=== PATIENT | female | born 1930 | race Caucasian/White ===

== ENCOUNTER → 2017-06-01 | Outpatient (CLI) | payer MEDICARE, OTHER ==
--- NOTE | 2017-06-01 10:14 | CT ---
EXAMINATION TYPE: CT lumbar spine wo con DATE OF EXAM: 06/01/2017 COMPARISON: NONE HISTORY: 86-year-old female with pain, lumbar spondylosis TECHNIQUE: Contiguous axial scanning of the lumbar spine without IV contrast. Coronal and sagittal re constructions performed. CT DLP: 964.3 mGycm Automated exposure control for dose reduction was used. FINDINGS: There is a degenerated levoconvex scoliosis of the lumbar spine. Hypertrophic facet arthropathy throughout with moderate to advanced disc/endplate degenerative change characterized by disc interspace narrowing, bulging discs, and vacuum phenomenon at some levels. There is degenerative thinning of the intraspinous ligaments with abutment of the spinous processes c ompatible with Baastrup's disease. There is grade 1 retrolisthesis at T12-L1, L1-L2, and L2-L3. Grade 1 anterolisthesis at L3-L4 and L4- L5. At T12-L1, facet arthropathy with grade 1 retrolisthesis. There is slight attenuation of the thecal s ac without significant spinal canal stenosis. Mild bilateral neuroforaminal stenosis. At L1-L2, facet arthropathy and grade 1 retrolisthesis. Bulging disc is present with mild bilateral n euroforaminal stenosis. No significant spinal canal stenosis seen. At L2-L3, trace retrolisthesis with hypertrophic facet arthropathy. Discussed by complex is present. There is impression of the ventral thecal sac without significant spinal canal stenosis. There is mod erate right and mild left neuroforaminal stenosis. At L3-L4, there is hypertrophic facet arthropathy with grade 1 anterolisthesis. Bulging disc is prese nt with mild attenuation of the thecal sac. Changes result in [id number] right neuroforaminal s tenosis. At L4-L5, hypertrophic facet arthropathy with grade 1 anterolisthesis. Changes result in [id number] rate right neuroforaminal stenosis and mild on the left. No significant spinal canal stenosis. At L5-S1, facet arthropathy is present bilaterally discussed to be complex on both sides which abuts the extraforaminal L5 nerve roots, bilaterally. Moderate right and mild left neuroforaminal stenosis. Diffuse colonic diverticulosis. IMPRESSION: 1. HYPERTROPHIC FACET ARTHROPATHY AND MODERATE TO ADVANCED MULTILEVEL DEGENERATIVE DISC DISEASE. THER E IS A DEGENERATED LEVOCONVEX SCOLIOSIS. 2. GRADE 1 RETROLISTHESES AT T12-L1, L1-L2, AND L2-L3. GRADE 1 ANTEROLISTHESIS AT L3-L4 AND L4-L5. 3. ONLY MILD NARROWING OF THE SPINAL CANAL AT L3-L4. MINIMAL IMPRESSION ON THE THECAL SAC AT OTHER LE VELS. NO CANAL COMPROMISE. 4. VERY MILD AND MODERATE NEURAL FORAMINAL STENOSES OUTLINED ABOVE, MODERATE ON THE RIGHT AT L2-L3 AND L5-S1. 5. AT L5-S1, LATERAL DISC OSTEOPHYTIC COMPLEX APPEARS TO ABUT THE BILATERAL EXTRAFORAMINAL L5 NERVE R OOTS. 6. BAASTRUP'S DISEASE. 7. DIFFUSE COLONIC DIVERTICULOSIS.
== END | disposition home or self-care (01) ==
LOC: RADCTMAIN 09:16
PROVIDERS: ATTEND Physical Medicine & Rehabilitation
DX: M48.061 Spinal stenosis, lumbar region without neurogenic claudication (principal); M99.74 Connective tissue and disc stenosis of intervertebral foramina of sacral region; M51.36 Other intervertebral disc degeneration, lumbar region; M43.15 Spondylolisthesis, thoracolumbar region; M46.86 Other specified inflammatory spondylopathies, lumbar region; M41.86 Other forms of scoliosis, lumbar region; M48.26 Kissing spine, lumbar region
CPT/HCPCS: 72131

== ENCOUNTER 2017-07-14 11:21 | Inpatient (IN) | payer MEDICARE, OTHER ==
--- NOTE | 2017-07-14 12:10 | ED ---
Neuro HPI - General Chief Complaint: Neuro Symptoms/Deficit Stated Complaint: POSS CVA, FALL LAST NIGHT, SLURRED SPEECH Time Seen by Provider: 07/14/17 11:50 Source: patient, family, RN notes reviewed Mode of arrival: wheelchair Limitations: no limitations - History of Present Illness Is the patient presenting with stroke symptoms?: No Initial Comments: this is a 86-year-old female who is brought in by family members for evaluation for gagging her right foot sleeping a lot. Apparently sleeping started over a day ago. She was difficult to arouse all day yesterday she fell around 9:30 PM and after that she had some difficulty with raising her right foot she also has some jerking of her other extremities slightly slurred speech additionally she had some shortness of breath she complains of a dry throat. Also family noticed some facial asymmetry. She has of a recent history of a peripheral edema which got better after she started elevating her feet. No fevers chills no blurry vision no headaches or other symptoms at this time. - Related Data Home Medications: Home Medications Medication Instructions Recorded Confirmed Levothyroxine Sodium [Synthroid] 50 mcg PO DAILY 05/04/15 07/14/17 Metoprolol Succinate [Toprol XL] 37.5 mg PO DAILY 05/04/15 07/14/17 Quinapril/Hydrochlorothiazide 0.5 tab PO DAILY 05/04/15 07/14/17 [Quinapril-Hctz 20-12.5 mg Tab] Acetaminophen Tab [Tylenol Tab] 325 - 650 mg PO Q4H PRN 07/14/17 07/14/17 Celecoxib [CeleBREX] 200 mg PO BID 07/14/17 07/14/17 Escitalopram Oxalate [Lexapro] 10 mg PO HS 07/14/17 07/14/17 Furosemide [Lasix] 40 mg PO BID 07/14/17 07/14/17 Gabapentin [Neurontin] 300 mg PO HS 07/14/17 07/14/17 HYDROcodone/APAP 7.5-325MG [[place] 1 tab PO Q4-6H PRN 07/14/17 07/14/17 7.5-325] Metolazone [Zaroxolyn] 2.5 mg PO MOWEFR 07/14/17 07/14/17 Morphine Sulfate/Naltrexone 1 cap PO QAM 07/14/17 07/14/17 [Embeda ER 20-0.8 mg Capsule] Nizatidine [Axid] 150 mg PO DAILY 07/14/17 07/14/17 Simvastatin 40 mg PO HS 07/14/17 07/14/17 Spironolactone [Aldactone] 25 mg PO QAM 07/14/17 07/14/17 Allergies/Adverse Reactions: Allergies Allergy/AdvReac Type Severity Reaction Status Date / Time No Known Allergies Allergy Verified 07/14/17 12:29 Review of Systems ROS Statement: Those systems with pertinent positive or pertinent negative responses have been documented in the HPI. ROS Other: All systems not noted in ROS Statement are negative. General Exam - General Exam Comments Initial Comments: this is a well-developed well-nourished awake alert oriented 3 female she does demonstrate a Mehrdad Coma Scale of 15 Limitations: no limitations General appearance: alert, in no apparent distress Head exam: Present: atraumatic, normocephalic, normal inspection, other (some evidence of left facial asymmetry compared to the right) Eye exam: Present: normal appearance, PERRL, EOMI. Absent: scleral icterus, conjunctival injection, periorbital swelling ENT exam: Present: normal exam, mucous membranes moist Neck exam: Present: normal inspection. Absent: tenderness, meningismus, lymphadenopathy Respiratory exam: Present: normal lung sounds bilaterally. Absent: respiratory distress, wheezes, rales, rhonchi, stridor Cardiovascular Exam: Present: normal rhythm, bradycardia, normal heart sounds. Absent: systolic murmur, diastolic murmur, rubs, gallop, clicks GI/Abdominal exam: Present: soft, normal bowel sounds. Absent: distended, tenderness, guarding, rebound, rigid Extremities exam: Present: normal inspection, full ROM, normal capillary refill. Absent: tenderness, pedal edema, joint swelling, calf tenderness Back exam: Present: normal inspection Neurological exam: Present: alert, oriented X3, CN II-XII intact Psychiatric exam: Present: normal affect, normal mood Skin exam: Present: warm, dry, intact, normal color. Absent: rash Stroke MDM - Lab Data Result diagrams: 07/14/17 12:00 07/14/17 12:00 Lab Results 07/14/17 07/14/17 07/14/17 Range/Units 12:00 12:00 12:00 WBC 13.9 H (3.8-10.6) k/uL RBC 3.14 L (3.80-5.40) m/uL Hgb 9.9 L (11.4-16.0) gm/dL Hct 30.6 L (34.0-46.0) % MCV 97.6 (80.0-100.0) fL MCH 31.4 (25.0-35.0) pg MCHC 32.2 (31.0-37.0) g/dL RDW 16.2 H (11.5-15.5) % Plt Count 241 (150-450) k/uL Neutrophils % 69 % Lymphocytes % 20 % Monocytes % 7 % Eosinophils % 1 % Basophils % 0 % Neutrophils # 9.6 H (1.3-7.7) k/uL Lymphocytes # 2.8 (1.0-4.8) k/uL Monocytes # 1.0 (0-1.0) k/uL Eosinophils # 0.2 (0-0.7) k/uL Basophils # 0.1 (0-0.2) k/uL Anisocytosis Slight Macrocytosis Slight PT (9.0-12.0) sec INR (<1.2) APTT (22.0-30.0) sec Sodium 131 L (137-145) mmol/L Potassium 5.3 H (3.5-5.1) mmol/L Chloride 94 L (98-107) mmol/L Carbon Dioxide 27 (22-30) mmol/L Anion Gap 10 mmol/L BUN 115 H* (7-17) mg/dL Creatinine 2.92 H (0.52-1.04) mg/dL Est GFR (MDRD) Af Amer 19 (>60 ml/min/1.73 sqM) Est GFR (MDRD) Non-Af 15 (>60 ml/min/1.73 sqM) Glucose 106 H (74-99) mg/dL Calcium 8.7 (8.4-10.2) mg/dL Magnesium 2.5 H (1.6-2.3) mg/dL Total Bilirubin 0.4 (0.2-1.3) mg/dL AST 14 (14-36) U/L ALT 28 (9-52) U/L Alkaline Phosphatase 63 (38-126) U/L Total Creatine Kinase 37 (30-135) U/L CK-MB (CK-2) 1.2 (0.0-2.4) ng/mL CK-MB (CK-2) Rel Index 3.2 Troponin I <0.012 (0.000-0.034) ng/mL Total Protein 6.0 L (6.3-8.2) g/dL Albumin 3.5 (3.5-5.0) g/dL 07/14/17 Range/Units 12:00 WBC (3.8-10.6) k/uL RBC (3.80-5.40) m/uL Hgb (11.4-16.0) gm/dL Hct (34.0-46.0) % MCV (80.0-100.0) fL MCH (25.0-35.0) pg MCHC (31.0-37.0) g/dL RDW (11.5-15.5) % Plt Count (150-450) k/uL Neutrophils % % Lymphocytes % % Monocytes % % Eosinophils % % Basophils % % Neutrophils # (1.3-7.7) k/uL Lymphocytes # (1.0-4.8) k/uL Monocytes # (0-1.0) k/uL Eosinophils # (0-0.7) k/uL Basophils # (0-0.2) k/uL Anisocytosis Macrocytosis PT 9.7 (9.0-12.0) sec INR 1.0 (<1.2) APTT 22.5 (22.0-30.0) sec Sodium (137-145) mmol/L Potassium (3.5-5.1) mmol/L Chloride (98-107) mmol/L Carbon Dioxide (22-30) mmol/L Anion Gap mmol/L BUN (7-17) mg/dL Creatinine (0.52-1.04) mg/dL Est GFR (MDRD) Af Amer (>60 ml/min/1.73 sqM) Est GFR (MDRD) Non-Af (>60 ml/min/1.73 sqM) Glucose (74-99) mg/dL Calcium (8.4-10.2) mg/dL Magnesium (1.6-2.3) mg/dL Total Bilirubin (0.2-1.3) mg/dL AST (14-36) U/L ALT (9-52) U/L Alkaline Phosphatase (38-126) U/L Total Creatine Kinase (30-135) U/L CK-MB (CK-2) (0.0-2.4) ng/mL CK-MB (CK-2) Rel Index Troponin I (0.000-0.034) ng/mL Total Protein (6.3-8.2) g/dL Albumin (3.5-5.0) g/dL - NIH Stroke Scale 1a. Level of Consciousness: (0) alert 1b. LOC Questions: (0) answers correctly 1c. LOC Commands: (0) performs tasks correctly 2. Best Gaze: (0) normal 3. Visual: (0) no visual loss 4. Facial Palsy: (0) normal symmetrical movement 5a. Motor Arm Left: (0) no drift 5b. Motor Arm Right: (0) no drift 6a. Motor Leg Left: (0) no drift 6b. Motor Leg Right: (0) no drift 7. Limb Ataxia: (0) absent 8. Sensory: (0) normal 9. Best Language: (0) no aphasia 10. Dysarthria: (0) normal 11. Extinction/Inattention: (0) no abnormality - Thrombolytic Inclusion/Exclusion Thrombolytic Contraindications: Rapidly Improving s/s - Medical Decision Making I did discuss the findings the patient family did reevaluate patient several occasions. She does states no focal deficits. She does demonstrate however dehydration and acute renal failure. I did discuss the case with both Dr. Carrillo and Dr. Coleman. The patient will be admitted for IV hydration also consultation by nephrology and neurology. - EKG Data -: EKG Interpreted by Me EKG shows normal: sinus rhythm (sinus bradycardia rate of 58 first-degree AV block the FL interval 350 to QRS 160 QT cyst QTc of 496/46 left axis deviation a bundle-branch block pattern.) Past Medical History Past Medical History: Hypertension, Thyroid Disorder Additional Past Medical History / Comment(s): arthritis, irregular heart beat. History of Any Multi-Drug Resistant Organisms: None Reported Past Surgical History: Appendectomy, Joint Replacement, Orthopedic Surgery Additional Past Surgical History / Comment(s): knee replacement, right shoulder surgery Past Psychological History: No Psychological Hx Reported Smoking Status: Never smoker Past Alcohol Use History: None Reported Past Drug Use History: None Reported Course Vital Signs 07/14/17 07/14/17 07/14/17 11:33 12:19 13:44 Temperature 97.6 F Pulse Rate 58 L 58 L 56 L Respiratory 16 16 16 Rate Blood Pressure 84/47 83/44 O2 Sat by Pulse 92 L 97 95 Oximetry 07/14/17 15:05 Temperature 98.0 F Pulse Rate 60 Respiratory 18 Rate Blood Pressure 89/51 O2 Sat by Pulse 98 Oximetry Disposition Clinical Impression: Acute renal failure, Dehydration, Transient cerebral ischemia Disposition: ADMITTED IP TO THIS HOSP Condition: Stable Referrals: Adriana Carrillo MD [Primary Care Provider] - 1-2 days
[2017-07-14] MEDS: SODIUM CHLORIDE 0.9% 1,000 ML IV STA ×2 (12:17→18:55)
[2017-07-14] MEDS ORDERED: SODIUM CHLORIDE 0.9% 500 ML IV ONE (12:18)
[2017-07-14 12:31] LABS: Anisocytosis Slight; Basophils # (A) 0.1 k/uL (0-0.2); Basophils % (A) 0 %; Eosinophils # (A) 0.2 k/uL (0-0.7); Eosinophils % (A) 1 %; HCT 30.6 % (34.0-46.0); HGB 9.9 gm/dL (11.4-16.0); Lymphocytes # (A) 2.8 k/uL (1.0-4.8); Lymphocytes % (A) 20 %; MCH 31.4 pg (25.0-35.0); MCHC 32.2 g/dL (31.0-37.0); MCV 97.6 fL (80.0-100.0); Macrocytosis Slight; Mean Platelet Volume 8.3; Monocytes % (A) 7 %; Neutrophils # (A) 9.6 k/uL (1.3-7.7); Neutrophils % (A) 69 %; Platelet Count 241 k/uL (150-450); RBC 3.14 m/uL (3.80-5.40); RDW 16.2 % (11.5-15.5); WBC 13.9 k/uL (3.8-10.6)
[2017-07-14 12:41] LABS: Albumin 3.5 g/dL (3.5-5.0); Calcium 8.7 mg/dL (8.4-10.2); Magnesium 2.5 mg/dL (1.6-2.3); Potassium 5.3 mmol/L (3.5-5.1); Total Bilirubin 0.4 mg/dL (0.2-1.3)
[2017-07-14 12:46] LABS: Partial Thromboplastin Time 22.5 sec (22.0-30.0); Prothrombin Time 9.7 sec (9.0-12.0)
[2017-07-14 13:03] LABS: Creatine Kinase 37 U/L (30-135)
[2017-07-14 13:14] LABS: Creatine Kinase MB 1.2 ng/mL (0.0-2.4); Troponin I <0.012 ng/mL (0.000-0.034)
--- NOTE | 2017-07-14 13:33 | CT ---
EXAMINATION TYPE: CT brain wo con DATE OF EXAM: 07/14/2017 HISTORY: Poss CVA, fall from last night, slurred speech CT DLP: 950.2 mGycm. Automated Exposure Control for Dose Reduction was Utilized. TECHNIQUE: CT scan of the head is performed without contrast. COMPARISON: None. FINDINGS: There is no acute intracranial hemorrhage or midline shift identified. There is diffuse v entricular and sulcal prominence consistent with diffuse age-related cerebral atrophy. Blake-white mat ter differentiation is fairly well-maintained. The globes are intact and the visualized sinuses are clear. The calvarium is intact. IMPRESSION: No acute intracranial hemorrhage or midline shift. There is mild diffuse age-related ce rebral atrophy noted. If clinical concern for acute stroke persists further investigation with MRI study may be warranted.
[2017-07-14] MEDS ORDERED: SODIUM CHLORIDE 0.9% 500 ML IV STA (13:34)
--- NOTE | 2017-07-14 13:38 | XR ---
EXAMINATION TYPE: XR chest 2V DATE OF EXAM: 07/14/2017 COMPARISON: Chest x-ray December 14, 2013. HISTORY: Altered mental status and weakness. TECHNIQUE: Frontal and lateral views of the chest are obtained. FINDINGS: There is chronic parenchymal change without suspicious focal air space opacity, pleural ef fusion, or pneumothorax seen. The cardiac silhouette size remains enlarged with atherosclerotic aort a. Advanced degenerative change right glenohumeral joint is present with progression from prior x-ray . IMPRESSION: Cardiomegaly and chronic parenchymal changes without suspicious acute pulmonary process.
[2017-07-14] MEDS ORDERED: HYDROcodone/APAP 5-325MG 1 EACH TAB PO STA (15:07)
[2017-07-14] MEDS ORDERED: HYDROcodone/APAP 7.5-325MG 1 EACH TAB PO PRN (15:52)
[2017-07-14] MEDS: ASPIRIN 325 MG TAB PO SCH (18:55)
[2017-07-14] MEDS: SODIUM CHLORIDE 0.9% 1,000 ML IV SCH (18:56)
[2017-07-14 20:04] LABS: Calcium 8.4 mg/dL (8.4-10.2); Potassium 5.1 mmol/L (3.5-5.1)
[2017-07-14] MEDS ORDERED: SODIUM POLYSTYRENE SULFONATE 15 GM/60 ML BOTTLE PO STA (20:15)
[2017-07-14] MEDS ORDERED: CALCIUM GLUCONATE 1,000 MG in SODIUM CHLORIDE 0.9% 100 ML IVPB ONE (20:30)
--- NOTE | 2017-07-14 20:35 | P.HPIM ---
History of Present Illness H&P Date: 07/14/17 Chief Complaint: change in mental status 86 years old female with past medical history of hypertension, hypothyroidism, osteoarthritis, questionable history of congestive heart failure presenting with change in mental status, fall, increased sleepiness, jerking movement of the upper and lower extremities. According to the family patient was baseline 2 weeks ago when she started having increased weakness. Patient usually uses a walker at home without any difficulty lives with her son and [id number]. She has been sleeping a lot recently but is easy to wake. Family noticed increased jerking of movement associated with slurring of speech with facial droop on the right concerning for an acute stroke. Findings were discussed with Dr. Carrillo on the phone who encouraged patient to come to the ER promptly. CT head was negative for acute stroke howeverlabs done in the ED suggestive of acute dehydration including WBC 13.9, sodium 131, potassium 5.3, BUN 1:15, creatinine 2.19 which is all newpatient's baseline creatinine 0.76. family noticed patient was not drinking and eating for the past few days but denies any fever or chills or diarrhea, abdominal pain or chest pain or shortness of breath. Nephrology and urology been consulted. On evaluation patient was found to have increased jerking of the extremities suggestive of metabolic encephalopathy and myoclonic jerks secondary to the encephalopathy. EKGsuggestive of left bundle branch block sinus bradycardia with first-degree AV block.no previous EKG to compare. Patient is hyperkalemic on lab work concern for cardiac presentation of hypokalemia. One dose of Ticlid and calcium gluconate will be given NEEMA. Review of Systems Constitutional: Reports daytime sleepiness, Reports fatigue, Reports poor appetite, Reports weakness, Denies chills, Denies fever, Denies weight loss Eyes: denies blurred vision, denies diplopia, denies photophobia, denies loss of peripheral vision, denies loss of vision Ears, nose, mouth and throat: Reports voice changes, Denies headache, Denies hoarseness, Denies odynophagia, Denies post-nasal drip, Denies swelling in mouth , Denies swelling in throat, Denies vertigo Cardiovascular: Reports decreased exercise tolerance, Reports high blood pressure, Denies chest pain, Denies dyspnea on exertion, Denies irregular heart beat, Denies leg edema, Denies lightheadedness, Denies paroxysmal nocturnal dyspnea, Denies rapid heart beat Respiratory: Denies cough, Denies cough with sputum, Denies dyspnea, Denies home oxygen, Denies wheezing Gastrointestinal: Denies heartburn, Denies hematemesis, Denies hematochezia, Denies nausea, Denies vomiting Musculoskeletal: Reports frequent falls, Reports gait dysfunction, Denies arm numbness/tingling, Denies low back pain, Denies morning stiffness, Denies muscle cramps, Denies muscle weakness, Denies myalgias, Denies neck pain, Denies neck stiffness Musculoskeletal: bilateral: knee pain, absent: ankle stiffness, foot pain Integumentary: Denies dryness, Denies lesions, Denies rash Neurological: Reports balance difficulties, Reports change in mentation, Reports change in speech, Reports confusion, Reports gait dysfunction, Reports lack of coordination, Reports motor disturbance, Reports tremors, Reports weakness, Denies convulsions, Denies loss of vision, Denies memory loss, Denies migraines, Denies numbness, Denies paresthesias, Denies seizures Psychiatric: Reports change in appetite, Reports change in sleep habits, Reports confusion, Reports hypersomnia Endocrine: Reports fatigue Past Medical History Past Medical History: Hypertension, Thyroid Disorder Additional Past Medical History / Comment(s): arthritis, irregular heart beat. History of Any Multi-Drug Resistant Organisms: None Reported Past Surgical History: Appendectomy, Joint Replacement, Orthopedic Surgery Additional Past Surgical History / Comment(s): knee replacement, right shoulder surgery Past Anesthesia/Blood Transfusion Reactions: No Reported Reaction Past Psychological History: Anxiety Smoking Status: Never smoker Past Alcohol Use History: None Reported Past Drug Use History: None Reported - Past Family History Mother Family Medical History: Coronary Artery Disease (CAD) Father Family Medical History: CVA/TIA Medications and Allergies Home Medications Medication Instructions Recorded Confirmed Type Levothyroxine Sodium [Synthroid] 50 mcg PO DAILY 05/04/15 07/14/17 History Metoprolol Succinate [Toprol XL] 37.5 mg PO DAILY 05/04/15 07/14/17 History Quinapril/Hydrochlorothiazide 0.5 tab PO DAILY 05/04/15 07/14/17 History [Quinapril-Hctz 20-12.5 mg Tab] Acetaminophen Tab [Tylenol Tab] 325 - 650 mg PO Q4H PRN 07/14/17 07/14/17 History Celecoxib [CeleBREX] 200 mg PO BID 07/14/17 07/14/17 History Escitalopram Oxalate [Lexapro] 10 mg PO HS 07/14/17 07/14/17 History Furosemide [Lasix] 40 mg PO BID 07/14/17 07/14/17 History Gabapentin [Neurontin] 300 mg PO HS 07/14/17 07/14/17 History HYDROcodone/APAP 7.5-325MG [[place] 1 tab PO Q4-6H PRN 07/14/17 07/14/17 History 7.5-325] Metolazone [Zaroxolyn] 2.5 mg PO MOWEFR 07/14/17 07/14/17 History Morphine Sulfate/Naltrexone 1 cap PO QAM 07/14/17 07/14/17 History [Embeda ER 20-0.8 mg Capsule] Nizatidine [Axid] 150 mg PO DAILY 07/14/17 07/14/17 History Simvastatin 40 mg PO HS 07/14/17 07/14/17 History Spironolactone [Aldactone] 25 mg PO QAM 07/14/17 07/14/17 History Allergies Allergy/AdvReac Type Severity Reaction Status Date / Time No Known Allergies Allergy Verified 07/14/17 12:29 Physical Exam Vitals: Vital Signs Temp Pulse Pulse Resp BP BP Pulse Ox 07/14/17 18:19 57 L 16 07/14/17 16:43 97.8 F 62 16 95/61 97 07/14/17 16:42 96.7 F L 57 L 16 92/48 98 07/14/17 15:05 98.0 F 60 18 89/51 98 07/14/17 13:44 56 L 16 83/44 95 07/14/17 12:19 58 L 16 84/47 97 07/14/17 11:33 97.6 F 58 L 16 92 L Intake and Output 07/14/17 07/14/17 07/14/17 06:59 14:59 22:59 Intake Total 1000 Balance 1000 Intake: Amount of Fluid Infused ( 1000 ml) Other: # Voids 1 Weight 75.75 kg 75.75 kg Patient Weight 07/15/17 06:59 Weight 75.75 kg - Constitutional General appearance: patient is very drowsy and sleeps between conversation but is able to answer questions appropriately in no acute distress, obese - EENT Eyes: anicteric sclerae, PERRLA, normal appearance ENT: hearing grossly normal - Neck Neck: no lymphadenopathy, normal ROM, no other, no rigidity, no stridor, no thyromegaly - Respiratory Respiratory: bilateral: CTA, Rales present in the right lower lobe negative: diminished, dullness - Cardiovascular Rhythm: regular,bradycardic Heart sounds: normal: S1, S2 Abnormal Heart Sounds: severe systolic murmur, no diastolic murmur, no rub, positive forS3 Gallop, no S4 Gallop, no click, no other - Gastrointestinal General gastrointestinal: normal bowel sounds, soft - Integumentary Integumentary: no rash - Neurologic Neurologic: CNII-XII intact normal reflexes, spontaneous myoclonic jerks seen, slight increase in bone density - Musculoskeletal Musculoskeletal: gait normal, strength reduced 4/5 bilateral lower extremity right worse than left, upper extremity strength normal, the right foot drop present - Psychiatric Psychiatric: A&O x's 3, appropriate affect Results CBC & Chem 7: 07/14/17 12:00 07/14/17 19:39 Labs: Abnormal Lab Results - Last 24 Hours (Table) 07/14/17 07/14/17 07/14/17 Range/Units 12:00 12:00 19:39 WBC 13.9 H (3.8-10.6) k/uL RBC 3.14 L (3.80-5.40) m/uL Hgb 9.9 L (11.4-16.0) gm/dL Hct 30.6 L (34.0-46.0) % RDW 16.2 H (11.5-15.5) % Neutrophils # 9.6 H (1.3-7.7) k/uL Sodium 131 L 132 L (137-145) mmol/L Potassium 5.3 H (3.5-5.1) mmol/L Chloride 94 L (98-107) mmol/L BUN 115 H* 107 H* (7-17) mg/dL Creatinine 2.92 H 2.40 H (0.52-1.04) mg/dL Glucose 106 H 106 H (74-99) mg/dL Magnesium 2.5 H (1.6-2.3) mg/dL Total Protein 6.0 L (6.3-8.2) g/dL Thrombosis Risk Factor Assmnt - DVT/VTE Prophylaxis DVT/VTE Prophylaxis: Pharmacologic Prophylaxis ordered - Choose All That Apply Each Factor Represents 1 point: Heart failure (<1month), Obesity (BMI >25), Sepsis (< 1month), Swollen legs (current) Other Risk Factors: Yes Each Risk Factor Represents 3 Points: Age 75 years or older Other congenital or acquired thrombophilia - If yes, enter type in comment: No Thrombosis Risk Factor Assessment Total Risk Factor Score: 7 Thrombosis Risk Factor Assessment Level: High Risk Assessment and Plan Plan: #1 acute metabolic encephalopathy likely secondary to acute kidney injury, other differential includes acute stroke - Continue IV fluids status post 2 L of IV fluid,continue normal saline and 100 mL/h - Continue monitoring neuro checks -EEG ordered, seizure precaution needs to be taken - Prolactin level ordered #2 acute kidney injury likely secondary to ATN fromhypoperfusion of the kidneys likely secondary to cardiac dysfunction, dehydration, medication toxicity - Patient's baseline creatinine 0.7, current BUN 117 - Unlikely related to hypovolemia, patient has significant systolic murmur concerning for worsening aortic stenosis on examination reducing forward outflow from the heart, possible decreased perfusion due to cardiac dysfunction - Echocardiogram ordered - Repeat BMP ordered - Nephrology consulted - Follow-up input and output - Patient would need dialysis if no improvement in urine output - hold celecoxib, hydrochlorothiazide, Spirino lactone, lisinopril and that could have contributed to patient's presentation #3 hyperkalemia likely secondary to acute kidney injury - EKG changes present in the form of increased QRS interval - Status post 1 g calcium gluconate and one dose of Ticlid -Repeat BMP pending #4 hypertension - hold lisinopril, Lasix and hydrochlorothiazide and spironolactone. Hold celecoxib #5 degenerative disc disease hold opioids for increased confusion #6 hyperlipidemia continue atorvastatin #7 depression hold Lexapro #8 neuropathy of the lower extremities hold Neurontin #9 DVT prophylaxis with heparin #10 Pepcid 20 mg twice a day for GI prophylaxis CODE STATUS full code
--- NOTE | 2017-07-14 20:48 | CONS ---
CONSULTATION DATE OF CONSULTATION: 07/14/2017. CHIEF COMPLAINT: Transient ischemic attack. HISTORY OF PRESENT ILLNESS: The patient is a pleasant 86-year-old, female, who is being evaluated by the Neurology Service per the request of Dr. Coleman for a transient ischemic attack. The patient was brought into [facility] Emergency Room after her family noticed that she was dragging her right foot while walking. They also noticed some slurred speech. According to the family, the patient has also been quite drowsy over the past couple of days and was having jerking activity in her arms and legs. According to the patient, these involuntary movements started a couple of weeks ago. In reviewing her home medications, she was recently started on Lexapro 10 mg daily approximately 3 weeks ago. There is no history of any severe dementia but she has been under increased stress due to her 's advanced dementia. A CT scan of the brain was done in the emergency room which showed generalized atrophy with no acute abnormalities. Her CBC showed leukocytosis at 13.9, and anemia with a hemoglobin of 9.9 and hematocrit of 30%. Her comprehensive metabolic profile showed renal failure with a BUN of 115 and creatinine at 2.92. She also had hyponatremia at 131 and hyperkalemia at 5.3. Her cardiac enzymes were normal. At the time of my evaluation, her speech and strength appeared to be normal but she is still drowsy and frequently falls asleep during my history taking. She still has some abnormal/involuntary extremity movements consistent with myoclonus and asterixis. She denies any headache or dizziness. She denies any recent vomiting or diarrhea to account for any severe dehydration. Nephrology has been consulted. Chief. PAST MEDICAL HISTORY: Hypertension, hypothyroidism, arthritis, history of cardiac arrhythmia, history of appendectomy, joint replacement surgery, right shoulder surgery. SOCIAL HISTORY: She denies any tobacco, alcohol, or drug use. FAMILY HISTORY: Noncontributory. HOME MEDICATIONS: Reviewed in the chart. ALLERGIES: No known drug allergies. REVIEW OF SYSTEMS: CONSTITUTIONAL: Positive for fatigue and drowsiness. HEENT: Negative. EYES: Negative. CARDIOVASCULAR: As mentioned above. RESPIRATORY: Negative. NEUROLOGICAL: As mentioned above. GASTROINTESTINAL: Positive for occasional constipation. She denies any diarrhea. She denies any nausea or vomiting. GENITOURINARY: Negative. PSYCHIATRIC: As mentioned above. DERMATOLOGICAL: Negative. MUSCULOSKELETAL: Positive for frequent joint pain. ENDOCRINE: Positive for hypothyroidism. PHYSICAL EXAM: VITAL SIGNS: Temperature of 97.8, pulse 62, respirations 16, blood pressure 95/61. GENERAL APPEARANCE: The patient is a well-developed, elderly female who appears to be in no acute distress. She does appear to be drowsy. HEENT: Normocephalic atraumatic, no facial asymmetry is seen. NECK: Supple with no masses felt. CARDIOVASCULAR: Regular rate and rhythm. ABDOMEN: Nontender, nondistended. EXTREMITIES: No edema or clubbing. NEUROLOGICAL EXAM: The patient is somewhat drowsy but is arousable and follows commands appropriately. Speech and language are normal. Strength is full in all 4 extremities. Bilateral lower proximal muscle testing was limited due to chronic hip pain. Sensory exam was normal to light touch in all 4 extremities. No pronator drift is seen but she does have significant asterixis with involuntary upper extremity jerking. No facial asymmetry is noticed on cranial nerve testing. No seizure-like activity is seen. IMPRESSION: 1. Transient ischemic attack. 2. Dysarthria, resolved. 3. Right lower extremity weakness, resolved. 4. Involuntary muscle movements. 5. Acute renal failure. 6. Drowsiness. 7. Anemia. 8. Hyperkalemia. 9. Hyponatremia. RECOMMENDATIONS: The patient does appear to have suffered a transient ischemic attack with a transient episode of dysarthria and right lower extremity weakness. These symptoms have resolved. She has been started on aspirin 325 mg daily. I will order a carotid Doppler, EEG, fasting lipid panel and serum homocystine level. Although her involuntary muscle movements in her extremities are likely due to her significantly elevated BUN, Lexapro can also cause these symptoms. There is no history of depression and Lexapro was only started 3 weeks ago. I will discontinue this medication. I will consult Physical Therapy to evaluate and treat. Nephrology consultation is pending. Continue IV hydration as tolerated. I will continue to follow with you. Further recommendations to follow. Thank you for allowing me to participate in the care of your patient. If you have any questions, please feel free to contact me. LENI / NIDHIN: [id number] /
[2017-07-14] MEDS: ATORVASTATIN 20 MG TAB PO SCH (20:57)
[2017-07-14] MEDS: HEPARIN SODIUM,PORCINE 5,000 UNIT/ML 1 ML VIAL SQ SCH (20:57)
[2017-07-14] MEDS ORDERED: ESCITALOPRAM 10 MG TAB PO SCH (21:00)
[2017-07-14] MEDS ORDERED: GABAPENTIN 300 MG CAP PO SCH (21:00)
--- NOTE | 2017-07-15 00:37 | US ---
EXAM: US Duplex Bilateral Extracranial Arteries CLINICAL HISTORY: Stenosis. Possible CVA , falling and slurred speech TECHNIQUE: Real-time ultrasound scan of the bilateral carotid and vertebral arteries, 2-D danielson scale, with color Doppler flow and spectral waveform analysis. COMPARISON: No relevant prior studies available. FINDINGS: Limitations: High bifurcations and tortuous vessels bilaterally. Right common carotid artery: No occlusion or significant stenosis. Right internal carotid artery: No occlusion or significant stenosis. Right external carotid artery: No occlusion or significant stenosis. Right vertebral artery: Antegrade flow. Right ICA/CCA ratio: Within normal limits. Left common carotid artery: No occlusion or significant stenosis. Left internal carotid artery: No occlusion or significant stenosis. Left external carotid artery: No occlusion or significant stenosis. Left vertebral artery: Antegrade flow. Left ICA/CCA ratio: Within normal limits. CAROTID STENOSIS REFERENCE USING SRU CRITERIA: Mild - <50% stenosis. ICA PSV is less than 125 cm/second and plaque or intimal thickening is visible. Moderate - 50-69% stenosis. ICA PSV is 125 to 230 cm/second and plaque is visible. Severe - 70-94% stenosis. ICA PSV is more than 230 cm/second and visible plaque with lumen narrowing is seen. Near occlusion - 95-99% stenosis. ICA PSV is variable and significant plaque with luminal narrowing is seen. Occluded - 100% stenosis. No flow identified. IMPRESSION: No hemodynamically significant stenosis in bilateral internal carotid arteries. Antegrade vertebral flow bilaterally.
[2017-07-15] MEDS: SODIUM CHLORIDE 0.9% 1,000 ML IV SCH ×4 (02:00→20:52)
[2017-07-15 04:08] LABS: Appearance,Urine Clear (Clear); Bilirubin,Urine Negative (Negative); Blood,Urine Negative (Negative); Color,Urine Light Yellow; Glucose,Urine (UA) Negative (Negative); Ketones,Urine Negative (Negative); Leukocyte Esterase,Urine Negative (Negative); Nitrite,Urine Negative (Negative); Protein,Urine Negative (Negative); Specific Gravity,Urine 1.008 (1.001-1.035); Urobilinogen,Urine <2.0 mg/dL (<2.0)
[2017-07-15] MEDS: LEVOTHYROXINE 50 MCG TAB PO SCH (06:14)
[2017-07-15 06:30] LABS: Anisocytosis Slight; Basophils # (A) 0.1 k/uL (0-0.2); Basophils % (A) 1 %; Eosinophils # (A) 0.2 k/uL (0-0.7); Eosinophils % (A) 2 %; HCT 29.1 % (34.0-46.0); Lymphocytes % (A) 22 %; MCH 30.9 pg (25.0-35.0); MCV 99.7 fL (80.0-100.0); Macrocytosis Slight; Mean Platelet Volume 8.7; Monocytes # (A) 0.6 k/uL (0-1.0); Monocytes % (A) 6 %; Neutrophils # (A) 6.2 k/uL (1.3-7.7); Neutrophils % (A) 67 %; Platelet Count 195 k/uL (150-450); RBC 2.92 m/uL (3.80-5.40); WBC 9.3 k/uL (3.8-10.6)
[2017-07-15 06:47] LABS: Albumin 2.9 g/dL (3.5-5.0); Calcium 8.8 mg/dL (8.4-10.2); Potassium 4.9 mmol/L (3.5-5.1); Total Bilirubin 0.3 mg/dL (0.2-1.3); Total Protein 5.1 g/dL (6.3-8.2)
[2017-07-15] MEDS ORDERED: METOPROLOL SUCCINATE (ER) 25 MG TAB.ER.24H PO SCH (09:00)
[2017-07-15] MEDS ORDERED: HYDROCHLOROTHIAZIDE 25 MG TAB PO SCH (09:00)
[2017-07-15] MEDS ORDERED: FAMOTIDINE 20 MG TAB PO SCH (09:00)
[2017-07-15] MEDS ORDERED: LISINOPRIL 10 MG TAB PO SCH (09:00)
[2017-07-15] MEDS ORDERED: SPIRONOLACTONE 25 MG TAB PO SCH (09:00)
[2017-07-15] MEDS ORDERED: MELOXICAM 7.5 MG TAB PO SCH (09:00)
[2017-07-15] MEDS: HEPARIN SODIUM,PORCINE 5,000 UNIT/ML 1 ML VIAL SQ SCH ×2 (09:15→20:51)
[2017-07-15] MEDS: FAMOTIDINE 20 MG TAB PO SCH (09:15)
--- NOTE | 2017-07-15 10:03 | US ---
EXAMINATION TYPE: US kidneys/renal and bladder DATE OF EXAM: 07/15/2017 COMPARISON: NONE CLINICAL HISTORY: CIPRIANO. EXAM MEASUREMENTS: Right Kidney: 12.3 x 4.8 x 4.7 cm Left Kidney: 10.1 x 4.4 x 4.5 cm Right Kidney: No hydronephrosis or masses seen Left Kidney: Measuring smaller than the right. No hydronephrosis or masses seen Bladder: wnl Bilateral Jets seen: Yes IMPRESSION: 1. Normal renal ultrasound
[2017-07-15] MEDS: ASPIRIN 325 MG TAB PO SCH (11:28)
--- NOTE | 2017-07-15 13:23 | ECHOF ---
Referral Reason:hypotension MEASUREMENTS -------- HEIGHT: 157.5 cm WEIGHT: 76.7 kg BP: 93/54 IVSd: 1.4 cm (0.6 - 1.1) LVIDd: 4.4 cm (3.9 - 5.3) LVPWd: 1.4 cm (0.6 - 1.1) IVSs: 1.7 cm LVIDs: 3.0 cm LVPWs: 1.7 cm LAESV Index (A-L): 55.13 ml/m Ao Diam: 3.2 cm (2.0 - 3.7) AV Cusp: 0.8 cm (1.5 - 2.6) LA Diam: 3.1 cm (2.7 - 3.8) MV E Luis: 1.26 m/s MV DecT: 478 ms MV A Luis: 2.07 m/s MV E/A Ratio: 0.61 AV maxP.22 mmHg AV meanP.17 mmHg AR PHT: 431 ms RAP: 5.00 mmHg RVSP: 34.78 mmHg FINDINGS -------- Sinus rhythm. This was a technically adequate study. The left ventricular size is normal. There is moderate concentric left ventricular hypertrophy. O verall left ventricular systolic function is normal with, an EF between 55 - 60 %. The right ventricle is normal in size and function. LA is severely dilated >40 ml/m2 The right atrium is normal in size. Aortic valve is trileaflet and is severely thickened. There is moderate aortic regurgitation. The re is severe aortic stenosis present. Peak/mean gradient across the Aortic Valve is 126.22mmHg / 82 .17mmHg. The mitral valve leaflets are moderately thickened. Mild mitral annular calcification present. Se reji mitral regurgitation is present. Mild tricuspid regurgitation present. There is borderline pulmonary hypertension. The right ventr icular systolic pressure, as measured by Doppler, is 34.78mmHg. The pulmonic valve was not well visualized. The aortic root size is normal. Normal inferior vena cava with normal inspiratory collapse consistent with estimated right atrial pre ssure of 5 mmHg. The pericardium is normal. There is no pericardial effusion. CONCLUSIONS -------- 1. Sinus rhythm. 2. This was a technically adequate study. 3. The left ventricular size is normal. 4. Overall left ventricular systolic function is normal with, an EF between 55 - 60 %. 5. LA is severely dilated >40 ml/m2 6. Aortic valve is trileaflet and is severely thickened. 7. There is moderate aortic regurgitation. 8. There is severe aortic stenosis present. 9. Peak/mean gradient across the Aortic Valve is 126.22mmHg / 82.17mmHg. 10. The mitral valve leaflets are moderately thickened. 11. Mild mitral annular calcification present. 12. Severe mitral regurgitation is present. 13. Mild tricuspid regurgitation present. 14. There is borderline pulmonary hypertension. 15. The right ventricular systolic pressure, as measured by Doppler, is 34.78mmHg. 16. The pulmonic valve was not well visualized. 17. The aortic root size is normal. 18. There is no pericardial effusion. CASTING AGENT: Gonzalez Dahl RDCS
--- NOTE | 2017-07-15 14:24 | XR ---
EXAMINATION TYPE: XR chest 1V portable DATE OF EXAM: 07/15/2017 COMPARISON: Prior chest x-ray 07/14/2017 HISTORY: Abnormal chest x-ray, monitor congestive heart failure TECHNIQUE: Single frontal view of the chest is obtained. FINDINGS: Patient is again rotated and the heart is enlarged. No evident airspace disease, pneumotho rax, or pleural effusion. Interstitium within normal limits. Retrocardiac density is present and like ly reflects hiatal hernia, there are overlying cardiac leads. Arthropathy noted within the shoulders, remodeling present in the proximal right humerus and left. IMPRESSION: Cardiomegaly is stable. Abnormal retrocardiac density as described, rotated exam, follow -up PA and lateral chest x-ray may be of benefit. Additional findings above.
[2017-07-15 14:36] VITALS: BMI 30.9
[2017-07-15] MEDS: NALTREXONE PO SCH (15:28)
[2017-07-15] MEDS: MORPHINE SULFATE PO SCH (15:28)
--- NOTE | 2017-07-15 15:53 | P.PN ---
Subjective Progress Note Date: 07/15/17 Principal diagnosis: Acute kidney injury 86 years old female with past medical history of hypertension, hypothyroidism, osteoarthritis, questionable history of congestive heart failure presenting with change in mental status, fall, increased sleepiness, jerking movement of the upper and lower extremities. According to the family patient was baseline 2 weeks ago when she started having increased weakness. Patient usually uses a walker at home without any difficulty lives with her son and [id number]. She has been sleeping a lot recently but is easy to wake. Family noticed increased jerking of movement associated with slurring of speech with facial droop on the right concerning for an acute stroke. Findings were discussed with Dr. Carrillo on the phone who encouraged patient to come to the ER promptly. CT head was negative for acute stroke howeverlabs done in the ED suggestive of acute dehydration including WBC 13.9, sodium 131, potassium 5.3, BUN 1:15, creatinine 2.19 which is all newpatient's baseline creatinine 0.76. family noticed patient was not drinking and eating for the past few days but denies any fever or chills or diarrhea, abdominal pain or chest pain or shortness of breath. Nephrology and urology been consulted. On evaluation patient was found to have increased jerking of the extremities suggestive of metabolic encephalopathy and myoclonic jerks secondary to the encephalopathy. EKGsuggestive of left bundle branch block sinus bradycardia with first-degree AV block.no previous EKG to compare. Patient is hyperkalemic on lab work concern for cardiac presentation of hypokalemia. One dose of Ticlid and calcium gluconate will be given 07/15 Patient appears better, is more alert is able to answer questions appropriately without drifting to sleep. Myoclonic jerks have resolved well likely related to increased BUN. Neurology evaluated the patient and does feel that the patient's symptoms of transient dysarthria and right lower extremity weakness could be a presentation of TIA. EEG, homocystine, lipid panel, carotid Doppler was negative for occlusion. Patient's prolactin level is increased which could suggest seizures. Awaiting EEG results. Continue fluids at 75 mL/h. Nephrology evaluation pending. Echocardiogram evaluated suggestive of severe aortic stenosis and severe mitral regurgitation with ejection fraction of 55-60 % with borderline pulmonary hypertension and right ventricle systolic pressure 34.74 Objective - Vital Signs Vital signs: Vital Signs Temp 96.8 F L 07/15/17 15:26 Pulse 67 07/15/17 15:26 Resp 16 07/15/17 15:26 BP 105/51 07/15/17 15:26 Pulse Ox 95 07/15/17 15:26 Intake & Output 07/14/17 07/15/17 07/15/17 18:59 06:59 18:59 Intake Total 1000 1300 1090 Output Total 1500 1225 Balance 1000 -200 -135 Weight 75.75 kg 76.8 kg 76.8 kg Intake: IV 850 Sodium Chloride 0.9% 1, 850 000 ml @ 75 mls/hr IV . [id number] [facility] Rx#:[id number] Amount of Fluid Infused ( 1000 ml) Intake, IV Titration 1300 Amount Calcium Gluconate 1,000 100 mg In Sodium Chloride 0.9 % 100 ml @ 100 mls/hr IVPB ONCE ONE Rx#: [id number] Sodium Chloride 0.9% 1, 1200 000 ml @ 75 mls/hr IV . [id number] [facility] Rx#:[id number] Oral 0 240 Output: Urine 1500 1225 Other: Voiding Method Bedside Commode # Voids 1 1 # Bowel Movements 1 - Exam - Constitutional General appearance: patient is able to answer questions appropriately in no acute distress, obese - EENT Eyes: anicteric sclerae, PERRLA, normal appearance ENT: hearing grossly normal - Neck Neck: no lymphadenopathy, normal ROM, no other, no rigidity, no stridor, no thyromegaly - Respiratory Respiratory: bilateral: CTA, Rales present in the right lower lobe negative: diminished, dullness - Cardiovascular Rhythm: regular,bradycardic Heart sounds: normal: S1, S2 Abnormal Heart Sounds: severe systolic murmur, no diastolic murmur, no rub, positive forS3 Gallop, no S4 Gallop, no click, no other - Gastrointestinal General gastrointestinal: normal bowel sounds, soft - Integumentary Integumentary: no rash - Neurologic Neurologic: CNII-XII intact normal reflexes, spontaneous myoclonic jerks seen, slight increase in bone density - Musculoskeletal Musculoskeletal: gait normal, strength reduced 4/5 bilateral lower extremity right worse than left, upper extremity strength normal, the right foot drop present - Psychiatric Psychiatric: A&O x's 3, appropriate affect - Labs CBC & Chem 7: 07/15/17 05:52 07/15/17 05:52 Labs: Abnormal Lab Results - Last 24 Hours (Table) 07/14/17 07/14/17 07/14/17 Range/Units 12:00 19:39 19:39 RBC (3.80-5.40) m/uL Hgb (11.4-16.0) gm/dL Hct (34.0-46.0) % RDW (11.5-15.5) % Sodium 132 L (137-145) mmol/L BUN 107 H* (7-17) mg/dL Creatinine 2.40 H (0.52-1.04) mg/dL Glucose 106 H (74-99) mg/dL AST (14-36) U/L Total Protein (6.3-8.2) g/dL Albumin (3.5-5.0) g/dL Triglycerides (<150) mg/dL HDL Cholesterol (40-60) mg/dL Homocysteine 22.39 H (4.00-14.00) umol/L Prolactin 44.0 H (2.8-29.2) ng/mL 07/15/17 07/15/17 Range/Units 05:52 05:52 RBC 2.92 L (3.80-5.40) m/uL Hgb 9.0 L (11.4-16.0) gm/dL Hct 29.1 L (34.0-46.0) % RDW 17.0 H (11.5-15.5) % Sodium 136 L (137-145) mmol/L BUN 91 H* (7-17) mg/dL Creatinine 1.70 H (0.52-1.04) mg/dL Glucose (74-99) mg/dL AST 11 L (14-36) U/L Total Protein 5.1 L (6.3-8.2) g/dL Albumin 2.9 L (3.5-5.0) g/dL Triglycerides 157 H (<150) mg/dL HDL Cholesterol 39 L (40-60) mg/dL Homocysteine (4.00-14.00) umol/L Prolactin (2.8-29.2) ng/mL Assessment and Plan Plan: #1 acute metabolic encephalopathy likely secondary to acute kidney injury, other differential includes acute stroke/ TIA - Continue IV fluids status post 2 L of IV fluid,continue normal saline and 100 mL/h - Continue monitoring neuro checks -EEG ordered, seizure precaution needs to be taken - Prolactin level increased, concerning for seizures #2 acute kidney injury likely secondary to ATN fromhypoperfusion of the kidneys likely secondary to cardiac dysfunction, dehydration, medication toxicity - Patient's baseline creatinine 0.7, current BUN 117 - Unlikely related to hypovolemia, patient has significant systolic murmur concerning for worsening aortic stenosis on examination reducing forward outflow from the heart, possible decreased perfusion due to cardiac dysfunction - Echocardiogram evaluated suggestive of severe aortic stenosis and severe mitral regurgitation with ejection fraction of 55-60% with borderline pulmonary hypertension and right ventricle systolic pressure 34.74 - Repeat BMP ordered - Nephrology consulted - Follow-up input and output - Patient would need dialysis if no improvement in urine output - hold celecoxib, hydrochlorothiazide, Spirino lactone, lisinopril and that could have contributed to patient's presentation #3 hyperkalemia likely secondary to acute kidney injury - EKG changes present in the form of increased QRS interval - Status post 1 g calcium gluconate and one dose of Ticlid -Repeat BMP normal potassium #4 hypertension - hold lisinopril, Lasix and hydrochlorothiazide and spironolactone. Hold celecoxib #5 Right lower extremity weakness with transient slurring is likely secondary to acute TIA- continue aspirin 325 mg daily, carotid Dopplers negative for any occlusion. Lipid panel pending #5 degenerative disc disease hold opioids for increased confusion #6 hyperlipidemia continue atorvastatin #7 depression hold Lexapro #8 neuropathy of the lower extremities hold Neurontin #9 DVT prophylaxis with heparin #10 Pepcid 20 mg twice a day for GI prophylaxis CODE STATUS full code
--- NOTE | 2017-07-15 16:26 | P.PN ---
Subjective Progress Note Date: 07/15/17 Principal diagnosis: TIA this pleasant 86-year-old female continuing be evaluated by the neurology service for transient ischemic attack. Her presenting symptoms were right lower extremity weakness. She also had some slurred speech. She also had some involuntary movements did start a couple weeks ago. He called Lexapro was discontinued as possible causes. CT of the brain showed generalized atrophy and no acute intracranial abnormalities. Carotid Doppler showed no hemodynamically significant stenosis. Her comprehensive metabolic panel did show renal failure BUN of 115 a creatinine of 2.92. Her lipid panel showed a cholesterol 118 triglycerides 157 and LDL of 48 and HDL of 39 her homocysteine level was elevated at 22.39. At time my exam she is resting comfortably in no acute distress. Objective - Vital Signs Vital signs: Vital Signs Temp 96.8 F L 07/15/17 15:26 Pulse 67 07/15/17 15:26 Resp 16 07/15/17 15:26 BP 105/51 07/15/17 15:26 Pulse Ox 95 07/15/17 15:26 Intake & Output 07/14/17 07/15/17 07/15/17 18:59 06:59 18:59 Intake Total 1000 1300 1090 Output Total 1500 1225 Balance 1000 -200 -135 Weight 75.75 kg 76.8 kg 76.8 kg Intake: IV 850 Sodium Chloride 0.9% 1, 850 000 ml @ 75 mls/hr IV . [id number] [facility] Rx#:[id number] Amount of Fluid Infused ( 1000 ml) Intake, IV Titration 1300 Amount Calcium Gluconate 1,000 100 mg In Sodium Chloride 0.9 % 100 ml @ 100 mls/hr IVPB ONCE ONE Rx#: [id number] Sodium Chloride 0.9% 1, 1200 000 ml @ 75 mls/hr IV . [id number] [facility] Rx#:[id number] Oral 0 240 Output: Urine 1500 1225 Other: Voiding Method Bedside Commode # Voids 1 1 # Bowel Movements 1 - Constitutional General appearance: Present: cooperative, no acute distress - EENT Eyes: Present: EOMI, PERRLA. Absent: abnormal pupil, ptosis ENT: Present: hearing grossly normal - Neck Neck: Present: normal ROM. Absent: rigidity - Respiratory Respiratory: negative: prolonged expiration, prolonged inspiration - Cardiovascular Rhythm: regular - Gastrointestinal General gastrointestinal: Absent: distended, tenderness - Neurologic Neurologic Comment(s): she is alert awake and oriented 3. Speech and language are normal. There is no lateralizing weakness. no Facial asymmetry. Strength is full in bilateral upper and lower extremities. However, proximal lower extremity muscle testing is limited due to chronic hip pain. No sensory deficit in any extremity.no seizure-like activity is seen. No involuntary muscle movements are seen during my examination today. - Labs CBC & Chem 7: 07/15/17 05:52 07/15/17 05:52 Labs: Abnormal Lab Results - Last 24 Hours (Table) 07/14/17 07/14/17 07/14/17 Range/Units 12:00 19:39 19:39 RBC (3.80-5.40) m/uL Hgb (11.4-16.0) gm/dL Hct (34.0-46.0) % RDW (11.5-15.5) % Sodium 132 L (137-145) mmol/L BUN 107 H* (7-17) mg/dL Creatinine 2.40 H (0.52-1.04) mg/dL Glucose 106 H (74-99) mg/dL AST (14-36) U/L Total Protein (6.3-8.2) g/dL Albumin (3.5-5.0) g/dL Triglycerides (<150) mg/dL HDL Cholesterol (40-60) mg/dL Homocysteine 22.39 H (4.00-14.00) umol/L Prolactin 44.0 H (2.8-29.2) ng/mL 07/15/17 07/15/17 Range/Units 05:52 05:52 RBC 2.92 L (3.80-5.40) m/uL Hgb 9.0 L (11.4-16.0) gm/dL Hct 29.1 L (34.0-46.0) % RDW 17.0 H (11.5-15.5) % Sodium 136 L (137-145) mmol/L BUN 91 H* (7-17) mg/dL Creatinine 1.70 H (0.52-1.04) mg/dL Glucose (74-99) mg/dL AST 11 L (14-36) U/L Total Protein 5.1 L (6.3-8.2) g/dL Albumin 2.9 L (3.5-5.0) g/dL Triglycerides 157 H (<150) mg/dL HDL Cholesterol 39 L (40-60) mg/dL Homocysteine (4.00-14.00) umol/L Prolactin (2.8-29.2) ng/mL Assessment and Plan (1) Dysarthria Current Visit: Yes Status: Resolved Code(s): R47.1 - DYSARTHRIA AND ANARTHRIA SNOMED Code(s): 7181459 (2) Transient right leg weakness Current Visit: Yes Status: Resolved Code(s): R29.898 - OTH SYMPTOMS AND SIGNS INVOLVING THE MUSCULOSKELETAL SYSTEM SNOMED Code(s): 022693827 (3) Involuntary movements Current Visit: Yes Status: Acute Code(s): R25.2 - CRAMP AND SPASM SNOMED Code(s): 617551063 (4) Acute renal failure Current Visit: Yes Status: Acute Code(s): N17.9 - ACUTE KIDNEY FAILURE, UNSPECIFIED SNOMED Code(s): 38733150 (5) Dehydration Current Visit: Yes Status: Resolved Code(s): E86.0 - DEHYDRATION SNOMED Code(s): 96365856 (6) Transient cerebral ischemia Current Visit: Yes Status: Acute Code(s): G45.9 - TRANSIENT CEREBRAL ISCHEMIC ATTACK, UNSPECIFIED SNOMED Code(s): 475099234 Plan: the patient has likely suffered a transient ischemic attack. She will continue aspirin 325 mg daily. continue antihyperlipidemic. We have also started her on Folbic for her elevated homocysteine level. her involuntary upper extremity movements seem to be resolved with discontinuation of Lexapro and reversal of her metabolic abnormalities.Barring any unforeseen abnormalities on her EEG she would be cleared from a neurological standpoint. I have performed a history and physical on the above patient. I have reviewed the above note, and agree.
[2017-07-15] MEDS: ATORVASTATIN 20 MG TAB PO SCH (20:51)
[2017-07-16] MEDS: ONDANSETRON 4 MG/2 ML VIAL IVP PRN ×3 (03:08→13:02)
[2017-07-16] MEDS: LEVOTHYROXINE 50 MCG TAB PO SCH (06:29)
[2017-07-16 07:21] LABS: Anisocytosis Slight; Basophils % (A) 0 %; Eosinophils # (A) 0.1 k/uL (0-0.7); Eosinophils % (A) 1 %; HCT 30.5 % (34.0-46.0); HGB 9.5 gm/dL (11.4-16.0); Lymphocytes # (A) 1.9 k/uL (1.0-4.8); Lymphocytes % (A) 20 %; MCH 31.4 pg (25.0-35.0); MCHC 31.1 g/dL (31.0-37.0); Macrocytosis Slight; Mean Platelet Volume 8.7; Monocytes # (A) 0.6 k/uL (0-1.0); Monocytes % (A) 7 %; Neutrophils # (A) 6.7 k/uL (1.3-7.7); Neutrophils % (A) 71 %; Platelet Count 212 k/uL (150-450); RBC 3.02 m/uL (3.80-5.40); RDW 17.6 % (11.5-15.5); WBC 9.5 k/uL (3.8-10.6)
[2017-07-16 07:34] LABS: ALT 30 U/L (9-52); AST 14 U/L (14-36); Albumin 3.1 g/dL (3.5-5.0); Alkaline Phosphatase 60 U/L (38-126); Anion Gap 4 mmol/L; Blood Urea Nitrogen 47 mg/dL (7-17); Calcium 9.7 mg/dL (8.4-10.2); Carbon Dioxide 32 mmol/L (22-30); Chloride 105 mmol/L (98-107); Glucose 100 mg/dL (74-99); Potassium 4.5 mmol/L (3.5-5.1); Sodium 141 mmol/L (137-145); Total Bilirubin 0.5 mg/dL (0.2-1.3); Total Protein 5.6 g/dL (6.3-8.2)
[2017-07-16] MEDS: ASPIRIN 325 MG TAB PO SCH (08:05)
[2017-07-16] MEDS: HEPARIN SODIUM,PORCINE 5,000 UNIT/ML 1 ML VIAL SQ SCH (08:05)
[2017-07-16] MEDS: FAMOTIDINE 20 MG TAB PO SCH (08:05)
--- NOTE | 2017-07-16 09:24 | P.CRDCN ---
History of Present Illness Consult date: 07/16/17 Chief complaint: Generalized weakness History of present illness: This is a pleasant 86-year-old female patient with no significant cardiac history from before but history of severe arthritis causing the patient to have limited functional capacity, the patient's and her live with their son. The patient was brought to the hospital with a change in mental status. The initial impression was a TIA/stroke. She underwent a computed tomography scan of the brain which did not reveal any acute abnormalities. The patient also was found to be in acute on chronic renal failure as well as hyperkalemia secondary to acute renal failure. She did have decreased oral intake before. Subsequently the patient was diagnosed with metabolic encephalopathy. Currently the patient mentation has improved significantly. She is awake, alert, and oriented 3. We get involved in the care of the patient because she did undergo an echocardiogram which revealed normal LV function with critical aortic stenosis as well as severe mitral regurgitation. Clinically the patient denies having any chest pain or discomfort and denies having any exertional dyspnea or orthopnea but she has limited functional capacity and she does not move around because of her severe arthritis. I had a long discussion with her as well as with her [id number] in the room regarding the next step. I discussed the option between conservative medical approach or surgical approach which include traditional aortic valve replacement versus transcatheter aortic valve replacement. Beside that the patient's blood pressure is marginally low and I think this is because of the severe aortic stenosis. She is on Toprol-XL which I did stop. She is not on any blood pressure medications beside that. Past Medical History Past Medical History: Hypertension, Thyroid Disorder Additional Past Medical History / Comment(s): arthritis, irregular heart beat. History of Any Multi-Drug Resistant Organisms: None Reported Past Surgical History: Appendectomy, Joint Replacement, Orthopedic Surgery Additional Past Surgical History / Comment(s): knee replacement, right shoulder surgery Past Anesthesia/Blood Transfusion Reactions: No Reported Reaction Past Psychological History: Anxiety Smoking Status: Never smoker Past Alcohol Use History: None Reported Past Drug Use History: None Reported - Past Family History Mother Family Medical History: Coronary Artery Disease (CAD) Father Family Medical History: CVA/TIA Medications and Allergies Home Medications Medication Instructions Recorded Confirmed Type Levothyroxine Sodium [Synthroid] 50 mcg PO DAILY 05/04/15 07/14/17 History Metoprolol Succinate [Toprol XL] 37.5 mg PO DAILY 05/04/15 07/14/17 History Quinapril/Hydrochlorothiazide 0.5 tab PO DAILY 05/04/15 07/14/17 History [Quinapril-Hctz 20-12.5 mg Tab] Acetaminophen Tab [Tylenol Tab] 325 - 650 mg PO Q4H PRN 07/14/17 07/14/17 History Celecoxib [CeleBREX] 200 mg PO BID 07/14/17 07/14/17 History Escitalopram Oxalate [Lexapro] 10 mg PO HS 07/14/17 07/14/17 History Furosemide [Lasix] 40 mg PO BID 07/14/17 07/14/17 History Gabapentin [Neurontin] 300 mg PO HS 07/14/17 07/14/17 History HYDROcodone/APAP 7.5-325MG [[place] 1 tab PO Q4-6H PRN 07/14/17 07/14/17 History 7.5-325] Metolazone [Zaroxolyn] 2.5 mg PO MOWEFR 07/14/17 07/14/17 History Morphine Sulfate/Naltrexone 1 cap PO QAM 07/14/17 07/14/17 History [Embeda ER 20-0.8 mg Capsule] Nizatidine [Axid] 150 mg PO DAILY 07/14/17 07/14/17 History Simvastatin 40 mg PO HS 07/14/17 07/14/17 History Spironolactone [Aldactone] 25 mg PO QAM 07/14/17 07/14/17 History Allergies Allergy/AdvReac Type Severity Reaction Status Date / Time No Known Allergies Allergy Verified 07/14/17 12:29 Physical Exam Vitals: Vital Signs Temp Pulse Resp BP Pulse Ox 07/16/17 08:00 97.2 F L 87 20 95/51 96 07/16/17 04:00 77 16 07/16/17 00:00 97.1 F L 77 16 114/77 92 L 07/15/17 20:00 98.1 F 81 12 100/55 93 L 07/15/17 15:26 96.8 F L 67 16 105/51 95 07/15/17 11:25 97 F L 69 16 114/56 93 L Intake and Output 07/15/17 07/16/17 07/16/17 22:59 06:59 14:59 Intake Total 700 600 240 Output Total 1200 600 200 Balance -500 0 40 Intake: IV 600 600 Sodium Chloride 0.9% 1, 600 600 000 ml @ 75 mls/hr IV . [id number] DEBORA Rx#:[id number] Oral 100 240 Output: Urine 1200 600 200 Other: Voiding Method Bedside Commode Bedside Commode # Bowel Movements 1 Weight 74.5 kg - Constitutional General appearance: no acute distress - Respiratory Respiratory: bilateral: rales - Cardiovascular Rhythm: regular Heart sounds: normal: S1 Abnormal Heart Sounds: systolic murmur Results 07/16/17 06:15 07/16/17 06:15 Cardiac Enzymes 07/16/17 Range/Units 06:15 AST 14 (14-36) U/L CBC 07/16/17 Range/Units 06:15 WBC 9.5 (3.8-10.6) k/uL RBC 3.02 L (3.80-5.40) m/uL Hgb 9.5 L (11.4-16.0) gm/dL Hct 30.5 L (34.0-46.0) % Plt Count 212 (150-450) k/uL Comprehensive Metabolic Panel 07/16/17 Range/Units 06:15 Sodium 141 (137-145) mmol/L Potassium 4.5 (3.5-5.1) mmol/L Chloride 105 (98-107) mmol/L Carbon Dioxide 32 H (22-30) mmol/L BUN 47 H (7-17) mg/dL Creatinine 0.95 (0.52-1.04) mg/dL Glucose 100 H (74-99) mg/dL Calcium 9.7 (8.4-10.2) mg/dL AST 14 (14-36) U/L ALT 30 (9-52) U/L Alkaline Phosphatase 60 (38-126) U/L Total Protein 5.6 L (6.3-8.2) g/dL Albumin 3.1 L (3.5-5.0) g/dL Current Medications Generic Name Dose Route Start Last Admin Trade Name Freq PRN Reason Stop Dose Admin Aspirin 325 mg 07/14/17 16:30 07/16/17 08:05 Aspirin PO 325 mg DAILY DEBORA Administration Atorvastatin Calcium 20 mg 07/14/17 21:00 07/15/17 20:51 Lipitor PO 20 mg HS DEBORA Administration Famotidine 20 mg 07/15/17 09:00 07/16/17 08:05 Pepcid PO 20 mg DAILY DEBORA Administration Folic Acid 1 each 07/16/17 12:00 Folbic PO DAILY@1200 DEBORA Heparin Sodium (Porcine) 5,000 unit 07/14/17 21:00 07/16/17 08:05 Heparin SQ 5,000 unit Q12HR DEBORA Administration Sodium Chloride 1,000 mls @ 75 mls/hr 07/14/17 16:00 07/15/17 20:52 Saline 0.9% IV 75 mls/hr .[id number] DEBORA Administration Levothyroxine Sodium 50 mcg 07/15/17 06:30 07/16/17 06:29 Synthroid PO 50 mcg 0630 DEBORA Administration Non-Formulary Medication 1 cap 07/15/17 09:00 07/15/17 15:28 Morphine Sulfate/Naltrexone [Embeda Er 20-0.8 Mg Capsule] PO 1 cap QAM DEBORA Administration Ondansetron HCl 4 mg 07/15/17 19:20 07/16/17 08:49 Zofran IVP 4 mg Q4H PRN Administration Nausea And Vomiting Intake and Output 07/15/17 07/16/17 07/16/17 22:59 06:59 14:59 Intake Total 700 600 240 Output Total 1200 600 200 Balance -500 0 40 Intake: IV 600 600 Sodium Chloride 0.9% 1, 600 600 000 ml @ 75 mls/hr IV . [id number] DEB[facility]A Rx#:[id number] Oral 100 240 Output: Urine 1200 600 200 Other: Voiding Method Bedside Commode Bedside Commode # Bowel Movements 1 Weight 74.5 kg 07/16/17 06:15 07/16/17 06:15 Assessment and Plan Assessment: Assessment #1 change in mental status which has improved #2 metabolic encephalopathy #3 acute on chronic renal failure #4 electrolytes imbalance secondary to the above #5 anemia with a hemoglobin around 9 #6 critical aortic stenosis #7 severe mitral regurgitation Plan #1 in view of the margin the low blood pressure I will DC the Toprol-XL #2 I discussed with the patient the conservative and invasive approach regarding the aortic valve #3 the patient's and her family are going to discuss that later on today. We'll continue following up with the patient and thank you for allowing us participate in her care
[2017-07-16] MEDS ORDERED: CYANOCOBALAMIN-FA-PYRIDOXINE 1 EACH TAB PO SCH (12:00)
[2017-07-16] MEDS: MORPHINE SULFATE PO SCH (12:48)
[2017-07-16] MEDS: NALTREXONE PO SCH (12:48)
[2017-07-16] MEDS ORDERED: FLUTICASONE 50MCG/SPRAY NASAL 16GM EA NOSTRIL SCH (13:00)
[2017-07-16] MEDS ORDERED: SCOPOLAMINE 1.5MG/72HR PATCH TRANSDERM SCH (13:00)
[2017-07-16] MEDS: SODIUM CHLORIDE 0.9% 1,000 ML IV SCH (14:23)
[2017-07-16] MEDS ORDERED: DEXTROSE 5%-0.9% NACL 1,000 ML IV SCH (15:00)
[2017-07-16 15:47] VITALS: BP 119/58; PULSE 88; RESP 16; TEMP 98.3
--- NOTE | 2017-07-16 16:05 | EEG ---
ELECTROENCEPHALOGRAM REPORT DATE OF SERVICE: 07/15/2017. REASON FOR TESTING: Transient ischemic attack. DESCRIPTION OF THE PROCEDURE: This EEG was performed using a 21 channel digital electroencephalograph, following international 10-20 system. DESCRIPTION OF THE RECORDING: From the beginning of the tracing, and with the patient's eyes closed, the background rhythm was mostly consisting of 7 hertz theta frequency. In the posterior occipital leads. No obvious asymmetry is seen. Frequent movement artifacts are noticed. The patient does reach stage II of sleep, and occasional K complexes are seen. Photic stimulation was performed with a minimal driving response seen. No pathological waves were elicited. Hyperventilation was not performed. Frequent muscle artifacts are seen. No epileptiform discharges were seen. Her EKG lead showed a regular rate and rhythm. INTERPRETATION: This asleep and awake EEG is abnormal due to presence of generalized slowing of the background rhythm, mostly in the theta range. This is consistent with mild encephalopathy. No epileptiform discharges are seen. The absence of epileptiform discharges does not rule out the diagnosis of epilepsy, therefore clinical correlation is recommended. [id number] / NIDHIN: [id number] /
--- NOTE | 2017-07-16 16:18 | P.DS ---
Providers Date of admission: 07/14/17 15:49 Attending physician: Norman Coleman MD Consults: 07/14/17 15:50 Consult Physician Routine Consulting Provider: Maureen Mera Consult Reason/Comments: renal failure, dehydration Do you want consulting provider notified?: Yes 07/14/17 15:51 Consult Physician Routine Consulting Provider: Nohemy Best Consult Reason/Comments: TIA Do you want consulting provider notified?: Yes 07/15/17 13:57 Consult Physician Routine Consulting Provider: Emmanuel Hawthorne Consult Reason/Comments: Severe aortic stenosis, severe MR with CIPRIANO Do you want consulting provider notified?: Yes Primary care physician: Adriana Carrillo [facility] Course: 86 years old female with past medical history of hypertension, hypothyroidism, osteoarthritis, questionable history of congestive heart failure presenting with change in mental status, fall, increased sleepiness, jerking movement of the upper and lower extremities. According to the family patient was baseline 2 weeks ago when she started having increased weakness. Patient usually uses a walker at home without any difficulty lives with her son and [id number]. She has been sleeping a lot recently but is easy to wake. Family noticed increased jerking of movement associated with slurring of speech with facial droop on the right concerning for an acute stroke. Findings were discussed with Dr. Carrillo on the phone who encouraged patient to come to the ER promptly. CT head was negative for acute stroke howeverlabs done in the ED suggestive of acute dehydration including WBC 13.9, sodium 131, potassium 5.3, BUN 1:15, creatinine 2.19 which is all newpatient's baseline creatinine 0.76. family noticed patient was not drinking and eating for the past few days but denies any fever or chills or diarrhea, abdominal pain or chest pain or shortness of breath. Nephrology and urology been consulted. On evaluation patient was found to have increased jerking of the extremities suggestive of metabolic encephalopathy and myoclonic jerks secondary to the encephalopathy. EKGsuggestive of left bundle branch block sinus bradycardia with first-degree AV block.no previous EKG to compare. Patient is hyperkalemic on lab work concern for cardiac presentation of hypokalemia. One dose of Ticlid and calcium gluconate will be given 07/15 Patient appears better, is more alert is able to answer questions appropriately without drifting to sleep. Myoclonic jerks have resolved well likely related to increased BUN. Neurology evaluated the patient and does feel that the patient's symptoms of transient dysarthria and right lower extremity weakness could be a presentation of TIA. EEG, homocystine, lipid panel, carotid Doppler was negative for occlusion. Patient's prolactin level is increased which could suggest seizures. Awaiting EEG results. Continue fluids at 75 mL/h. Nephrology evaluation pending. Echocardiogram evaluated suggestive of severe aortic stenosis and severe mitral regurgitation with ejection fraction of 55-60 % with borderline pulmonary hypertension and right ventricle systolic pressure 34.74 07/16 Patient is resting comfortably in bed. Overnight patient had nausea with bloating which did not get better with Zofran. Nurse at bedside states the patient has not been eating or drinking due to loss of appetite. Cardiology evaluated the patient and suggested conservative management based on the risk factors associated with aortic valve replacement. Family and patient is not willing to take the risk of surgery for the fear of losing her. Patient would like to be transitioned to hospice. She was complaining of some sinus drainage Flonase ordered. Scopolamine patch and Reglan ordered for nausea or vomiting. Patient will be transitioned to hospice today a likely discharge to home with hospice tomorrow. Discharge diagnosis #1 acute metabolic encephalopathy likely secondary to acute kidney injury, acute TIA and possible syncope from aortic stenosis #2 acute kidney injury likely secondary to ATN fromhypoperfusion #3 hyperkalemia #4 hypertension #5 Right lower extremity weakness with transient slurring is likely secondary to acute TIA #5 degenerative disc disease #6 hyperlipidemia #7 depression #8 neuropathy of the lower extremities #9 Acute rhinitis allergic #10 Critical aortic stenosis CC a copy of discharge Dr. Carrillo Disposition home with hospice Patient Condition at Discharge: Stable Plan - Discharge Summary Discharge Rx Participant: No New Discharge Prescriptions: No Action Metoprolol Succinate [Toprol XL] 37.5 mg PO DAILY Levothyroxine Sodium [Synthroid] 50 mcg PO DAILY Quinapril/Hydrochlorothiazide [Quinapril-Hctz 20-12.5 mg Tab] 0.5 tab PO DAILY Nizatidine [Axid] 150 mg PO DAILY HYDROcodone/APAP 7.5-325MG [[place] 7.5-325] 1 tab PO Q4-6H PRN PRN Reason: Pain Spironolactone [Aldactone] 25 mg PO QAM Morphine Sulfate/Naltrexone [Embeda ER 20-0.8 mg Capsule] 1 cap PO QAM Metolazone [Zaroxolyn] 2.5 mg PO MOWEFR Acetaminophen Tab [Tylenol Tab] 325 - 650 mg PO Q4H PRN PRN Reason: Pain Gabapentin [Neurontin] 300 mg PO HS Furosemide [Lasix] 40 mg PO BID Escitalopram Oxalate [Lexapro] 10 mg PO HS Celecoxib [CeleBREX] 200 mg PO BID Simvastatin 40 mg PO HS Discharge Medication List Levothyroxine Sodium [Synthroid] 50 mcg PO DAILY 05/04/15 [History] Metoprolol Succinate [Toprol XL] 37.5 mg PO DAILY 05/04/15 [History] Quinapril/Hydrochlorothiazide [Quinapril-Hctz 20-12.5 mg Tab] 0.5 tab PO DAILY 05/04/15 [History] Acetaminophen Tab [Tylenol Tab] 325 - 650 mg PO Q4H PRN 07/14/17 [History] Celecoxib [CeleBREX] 200 mg PO BID 07/14/17 [History] Escitalopram Oxalate [Lexapro] 10 mg PO HS 07/14/17 [History] Furosemide [Lasix] 40 mg PO BID 07/14/17 [History] Gabapentin [Neurontin] 300 mg PO HS 07/14/17 [History] HYDROcodone/APAP 7.5-325MG [[place] 7.5-325] 1 tab PO Q4-6H PRN 07/14/17 [History] Metolazone [Zaroxolyn] 2.5 mg PO MOWEFR 07/14/17 [History] Morphine Sulfate/Naltrexone [Embeda ER 20-0.8 mg Capsule] 1 cap PO QAM 07/14/17 [History] Nizatidine [Axid] 150 mg PO DAILY 07/14/17 [History] Simvastatin 40 mg PO HS 07/14/17 [History] Spironolactone [Aldactone] 25 mg PO QAM 07/14/17 [History] Follow up Appointment(s)/Referral(s): Adriana Carrillo MD [Primary Care Provider] - 1-2 days Nohemy Best MD [STAFF PHYSICIAN] - 2 Weeks Activity/Diet/Wound Care/Special Instructions: [facility] home care: #[phone]
[2017-07-16] MEDS ORDERED: METOCLOPRAMIDE 10 MG TAB PO SCH (17:30)
--- NOTE | 2017-07-16 18:51 | CONS ---
CONSULTATION REASON FOR CONSULT: Renal failure. HISTORY OF PRESENT ILLNESS: Patient is an 86-year-old female who was admitted to the hospital on 07/14/2017 with complaints of weakness and history of fall. The patient denies any lightheadedness. She did have some jerky movements and some slurred speech. She denied any palpitations or chest pain. According to the family, she had not been eating or drinking much. Home medications did include Celebrex and MARIA DOLORES inhibitors and thiazide diuretics along with Zaroxolyn and Lasix. According to the patient's family, recently she had an increased lower extremity edema and Zaroxolyn was added. Her serum creatinine on admission was 2.4 mg/dL with a BUN of 107. Patient has been maintained on IV fluids. Her creatinine is now down to 0.95 mg/dL. Blood pressure was low with systolic in the 80s on at the time of admission. PAST MEDICAL HISTORY: Hypertension, hypothyroidism, gastroesophageal reflux disease, neuropathy, osteoarthritis. PAST SURGICAL HISTORY: Appendectomy, right shoulder surgery, knee arthroplasty. SOCIAL HISTORY: Negative for smoking, drug abuse or alcohol abuse. Medications at home prior to admission include: 1. Synthroid. 2. Toprol-XL. 3. Quinapril. 4. Hydrochlorothiazide. 5. Celebrex. 6. Oxalate. 7. Lasix. 8. Neurontin. 9. Zaroxolyn. 10.Embeda. 11.Axid. 12.Simvastatin. 13.Aldactone. ALLERGIES: None. EXAMINATION: Patient is comfortable, awake, alert, oriented x3, not in any acute distress. Blood pressure is 107/54, heart rate 87 per minute. She is afebrile. HEART: S1, S2. LUNGS: Bilateral breath sounds are heard. Abdomen is soft, nontender. Lower extremities show no significant edema. 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 Currently, no focal deficits are noted. Labs show sodium 141, potassium 4.5, chloride 105, BUN 47, serum creatinine 0.95, hemoglobin 9.5 g/dL. ASSESSMENT: 1. Acute kidney injury, prerenal, associated with hypotension, hypoperfusion along with the intravascular volume depletion, currently improved. The patient remains off of angiotensin-converting enzyme inhibitors and diuretics. She is maintained on IV fluids. She can be discharged from nephrology standpoint and can resume low- dose diuretics as outpatient and depending on the blood pressure, we can also resume angiotensin-converting enzyme inhibitors if her blood pressure is elevated as outpatient. 2. Mental status changes secondary to volume depletion, hypotension and renal failure, currently improved. 3. Hypothyroidism. 4. History of hypertension, currently hypotensive and off of all antihypertensive medications. 5. Aortic valve disease. The patient has been evaluated by Cardiology. PLAN: The patient is stable for discharge from Nephrology standpoint. Re-evaluate for MARIA DOLORES inhibitors and diuretics as outpatient with close monitoring. Thank you for this consultation. Will continue to follow the patient with you during her hospitalization. MMODL / IJN: [id number] /
== END 2017-07-16 17:06 | disposition hospice, home (50) | DRG 682 ==
LOC: EC 11:21 → 6SEL 15:49
PROVIDERS: ADMIT Internal Medicine; ATTEND Internal Medicine
DX: N17.0 Acute kidney failure with tubular necrosis (principal); G93.41 Metabolic encephalopathy; E87.5 Hyperkalemia; G62.9 Polyneuropathy, unspecified; E87.1 Hypo-osmolality and hyponatremia; G45.9 Transient cerebral ischemic attack, unspecified; G25.3 Myoclonus; E03.9 Hypothyroidism, unspecified; E86.0 Dehydration; I44.7 Left bundle-branch block, unspecified; I12.9 Hypertensive chronic kidney disease with stage 1 through stage 4 chronic kidney disease, or unspecified chronic kidney disease; N18.9 Chronic kidney disease, unspecified; M19.90 Unspecified osteoarthritis, unspecified site; I44.0 Atrioventricular block, first degree; Z96.659 Presence of unspecified artificial knee joint; F41.9 Anxiety disorder, unspecified; I08.0 Rheumatic disorders of both mitral and aortic valves; R00.1 Bradycardia, unspecified; E86.1 Hypovolemia; E78.5 Hyperlipidemia, unspecified; F32.9 Major depressive disorder, single episode, unspecified; Z51.5 Encounter for palliative care; J00 Acute nasopharyngitis [common cold]; K21.9 Gastro-esophageal reflux disease without esophagitis; D64.9 Anemia, unspecified; Z82.49 Family history of ischemic heart disease and other diseases of the circulatory system; Z82.3 Family history of stroke; Z79.899 Other long term (current) drug therapy; Z79.891 Long term (current) use of opiate analgesic; Z90.49 Acquired absence of other specified parts of digestive tract; R47.1 Dysarthria and anarthria
CPT/HCPCS: 36415; 70450; 71010; 71020; 76770; 80048; 80053; 80061; 81003; 82140; 82550; 82553; 83090; 83735; 84146; 84443; 84484; 85025; 85610; 85730; 93005; 93306; 93880; 95819; 96360; 96361; 99285

== ENCOUNTER 2017-07-16 17:14 | Inpatient (IN) | payer MEDICAID ==
[2017-07-16] MEDS ORDERED: MORPHINE ORAL SOL CONC 20 MG/ML BOTTLE SL PRN (18:37)
[2017-07-16] MEDS ORDERED: ATROPINE SULFATE 0.4 MG/ML 1 ML VIAL IM STA (18:45)
[2017-07-16] MEDS ORDERED: ATROPINE SULFATE 0.1 MG/ML 10ML SYRINGE IM STA (18:52)
[2017-07-16] MEDS ORDERED: BISACODYL 10 MG SUPP RECTAL PRN (18:57)
[2017-07-16] MEDS ORDERED: ACETAMINOPHEN SUPPOSITORY 650 MG SUPP RECTAL PRN (18:58)
[2017-07-16] MEDS ORDERED: ATROPINE OPHTH SOLN 1% 5ML BTL SUBLINGUAL PRN (18:59)
[2017-07-16] MEDS: ONDANSETRON 4 MG/2 ML VIAL IVP PRN ×2 (19:12→23:57)
[2017-07-17] MEDS: DEXTROSE 5%-0.9% NACL 1,000 ML IV SCH ×2 (06:24→14:38)
[2017-07-17] MEDS: METOCLOPRAMIDE 10 MG TAB PO SCH ×2 (07:36→12:07)
[2017-07-17 08:21] VITALS: RESP 20
[2017-07-17] MEDS: LORazepam 0.5 MG TAB SUBLINGUAL PRN ×2 (08:25→14:39)
[2017-07-17 13:18] VITALS: PULSE 92
[2017-07-17 13:19] VITALS: BP 96/63; TEMP 98.1
--- NOTE | 2017-07-17 14:36 | P.HPIM ---
History of Present Illness H&P Date: 07/17/17 (This document will serve as both H and P and Discharge from hospice ) Chief Complaint: Metabolic encephalopathy 86 years old female with past medical history of hypertension, hypothyroidism, osteoarthritis, questionable history of congestive heart failure presenting with change in mental status, fall, increased sleepiness, jerking movement of the upper and lower extremities. According to the family patient was baseline 2 weeks ago when she started having increased weakness. Patient usually uses a walker at home without any difficulty lives with her son and [id number]. She has been sleeping a lot recently but is easy to wake. Family noticed increased jerking of movement associated with slurring of speech with facial droop on the right concerning for an acute stroke. Findings were discussed with Dr. Carrillo on the phone who encouraged patient to come to the ER promptly. CT head was negative for acute stroke howeverlabs done in the ED suggestive of acute dehydration including WBC 13.9, sodium 131, potassium 5.3, BUN 1:15, creatinine 2.19 which is all newpatient's baseline creatinine 0.76. family noticed patient was not drinking and eating for the past few days but denies any fever or chills or diarrhea, abdominal pain or chest pain or shortness of breath. Nephrology and urology been consulted. On evaluation patient was found to have increased jerking of the extremities suggestive of metabolic encephalopathy and myoclonic jerks secondary to the encephalopathy. EKGsuggestive of left bundle branch block sinus bradycardia with first-degree AV block.no previous EKG to compare. Patient is hyperkalemic on lab work concern for cardiac presentation of hypokalemia. One dose of Ticlid and calcium gluconate will be given 07/15 Patient appears better, is more alert is able to answer questions appropriately without drifting to sleep. Myoclonic jerks have resolved well likely related to increased BUN. Neurology evaluated the patient and does feel that the patient's symptoms of transient dysarthria and right lower extremity weakness could be a presentation of TIA. EEG, homocystine, lipid panel, carotid Doppler was negative for occlusion. Patient's prolactin level is increased which could suggest seizures. Awaiting EEG results. Continue fluids at 75 mL/h. Nephrology evaluation pending. Echocardiogram evaluated suggestive of severe aortic stenosis and severe mitral regurgitation with ejection fraction of 55-60 % with borderline pulmonary hypertension and right ventricle systolic pressure 34.74 07/16 Patient is resting comfortably in bed. Overnight patient had nausea with bloating which did not get better with Zofran. Nurse at bedside states the patient has not been eating or drinking due to loss of appetite. Cardiology evaluated the patient and suggested conservative management based on the risk factors associated with aortic valve replacement. Family and patient is not willing to take the risk of surgery for the fear of losing her. Patient would like to be transitioned to hospice. She was complaining of some sinus drainage Flonase ordered. Scopolamine patch and Reglan ordered for nausea or vomiting. Patient will be transitioned to hospice today a likely discharge to home with hospice tomorrow. Review of Systems Constitutional: Denies chills, Denies fever, Denies lethargy, Denies malaise, Denies poor appetite, endorses weakness, Denies weight loss Eyes: denies decreased vision, denies diplopia, denies discharge, denies pain Ears: deny: decreased hearing Ears, nose, mouth and throat: Denies dental pain, Denies headache, Denies nasal discharge, Denies nose pain Cardiovascular: Denies chest pain, Denies decreased exercise tolerance, Denies edema, Denies high blood pressure, Denies irregular heart beat, Denies palpitations, Denies paroxysmal nocturnal dyspnea, Denies rapid heart beat, Denies shortness of breath Respiratory: Denies congestion, Denies cough, Denies cough with sputum, Denies dyspnea, Denies home oxygen, Denies wheezing Gastrointestinal: Denies abdominal pain, Denies change in bowel habits, Denies coffee ground emesis, Denies early satiety, Denies excessive gas, Denies heartburn, Denies hematemesis, Denies hematochezia, Denies loss of appetite, Denies nausea, Denies vomiting Genitourinary: Denies dysuria, Denies flank pain, Denies kidney stones, Denies menorrhagia, Denies urgency, Denies urinary frequency Musculoskeletal: Denies gait dysfunction, Denies limitation of motion, Denies morning stiffness, Denies muscle cramps Integumentary: Denies rash, Denies wounds, Denies brittle nails, Denies change in hair/nails, Denies darkening of skin Neurological: Denies balance difficulties, Denies change in speech, Denies double vision, Denies gait dysfunction, Denies loss of vision, Denies motor disturbance, Denies numbness, Denies paralysis, Denies paresthesias, Denies seizures Psychiatric: Denies anxiety, Denies depression Endocrine: Denies excessive sweating, Denies excessive thirst, Denies high blood sugars, Denies palpitations Hematologic/Lymphatic: Denies easy bruising, Denies lymphadenopathy Past Medical History Past Medical History: Hypertension, Thyroid Disorder Additional Past Medical History / Comment(s): arthritis, irregular heart beat. ACUTE RENAL FAILURE, AORTIC STENOSIS, MITRAL REGURGITATION History of Any Multi-Drug Resistant Organisms: None Reported Past Surgical History: Appendectomy, Joint Replacement, Orthopedic Surgery Additional Past Surgical History / Comment(s): knee replacement, right shoulder surgery Past Anesthesia/Blood Transfusion Reactions: No Reported Reaction Past Psychological History: Anxiety Smoking Status: Never smoker Past Alcohol Use History: None Reported Past Drug Use History: None Reported - Past Family History Mother Family Medical History: Coronary Artery Disease (CAD) Father Family Medical History: CVA/TIA Medications and Allergies Home Medications Medication Instructions Recorded Confirmed Type Acetaminophen Tab [Tylenol] 325 - 650 mg PO Q4H PRN 07/14/17 07/16/17 History Morphine Sulfate/Naltrexone 1 cap PO QAM 07/14/17 07/16/17 History [Embeda ER 20-0.8 mg Capsule] Nizatidine [Axid] 150 mg PO DAILY 07/14/17 07/16/17 History Acetaminophen Suppository [Tylenol 650 mg RECTAL Q6HR PRN supp 07/17/17 Rx Suppository] Atropine Ophth Soln 1% 5Ml [Isopto 2 drops SUBLINGUAL Q4H PRN bottle 07/17/17 Rx Atropine 1% 5Ml] Bisacodyl [Dulcolax] 10 mg RECTAL DAILY PRN supp 07/17/17 Rx LORazepam [Ativan] 0.5 mg SUBLINGUAL Q4H PRN tab 07/17/17 Rx MORPHINE ORAL JEAN CONC 20mg/mL 0.25 mg SL Q4HR PRN ml 07/17/17 Rx [Roxanol Oral Soln Conc 20MG/ML] Metoclopramide [Reglan] 10 mg PO AC-TID tab 07/17/17 Rx Ondansetron Odt [Zofran Odt] 4 mg PO Q8HR PRN #30 tab 07/17/17 Rx Scopolamine 1.5MG/72Hr Patch 1 patch TRANSDERM Q72H patch 07/17/17 Rx [TransDerm Scop] Allergies Allergy/AdvReac Type Severity Reaction Status Date / Time No Known Allergies Allergy Verified 07/14/17 12:29 Physical Exam Vitals: Vital Signs Temp Pulse Resp BP Pulse Ox 07/17/17 13:18 98.1 F 92 20 96/63 94 L 07/17/17 12:00 92 20 07/17/17 08:20 97.4 F L 122 H 20 88/53 93 L 07/17/17 08:00 122 H 20 07/17/17 05:52 97.0 F L 96 18 107/57 93 L 07/17/17 04:00 16 07/17/17 00:00 16 07/16/17 20:00 16 07/16/17 17:30 16 Intake and Output 07/16/17 07/17/17 07/17/17 22:59 06:59 14:59 Intake Total 240 Output Total 500 750 1 Balance -500 -750 239 Intake: Oral 240 Output: Urine 200 200 Urine/Stool Mix 300 550 1 Other: Voiding Method Bedside Commode Bedside Commode Bedside Commode # Bowel Movements 1 Weight 74.5 kg 74.2 kg - Constitutional General appearance: cooperative, no acute distress, obese - Respiratory Respiratory: bilateral: CTA, negative: diminished, dullness, rales, rhonchi - Cardiovascular Rhythm: regular Heart sounds: normal: S1, S2 Abnormal Heart Sounds: no systolic murmur, no diastolic murmur, no rub, no S3 Gallop, no S4 Gallop, no click, no other - Gastrointestinal General gastrointestinal: normal bowel sounds, soft Thrombosis Risk Factor Assmnt - Choose All That Apply Each Risk Factor Represents 3 Points: Age 75 years or older Thrombosis Risk Factor Assessment Total Risk Factor Score: 3 Thrombosis Risk Factor Assessment Level: Moderate Risk Assessment and Plan Plan: Discharge diagnosis #1 acute metabolic encephalopathy likely secondary to acute kidney injury, acute TIA and possible syncope from aortic stenosis #2 acute kidney injury likely secondary to ATN fromhypoperfusion #3 hyperkalemia #4 hypertension #5 Right lower extremity weakness with transient slurring is likely secondary to acute TIA #5 degenerative disc disease #6 hyperlipidemia #7 depression #8 neuropathy of the lower extremities #9 Acute rhinitis allergic #10 Critical aortic stenosis
[2017-07-19] MEDS ORDERED: SCOPOLAMINE 1.5MG/72HR PATCH TRANSDERM SCH (14:00)
== END 2017-07-17 15:29 | disposition hospice, home (50) | DRG 682 ==
LOC: 6SEL 17:14
PROVIDERS: ADMIT Internal Medicine; ATTEND Internal Medicine
DX: N17.0 Acute kidney failure with tubular necrosis (principal); G93.41 Metabolic encephalopathy; G45.9 Transient cerebral ischemic attack, unspecified; E87.5 Hyperkalemia; G62.9 Polyneuropathy, unspecified; G25.3 Myoclonus; E03.9 Hypothyroidism, unspecified; E78.5 Hyperlipidemia, unspecified; Z51.5 Encounter for palliative care; F32.9 Major depressive disorder, single episode, unspecified; F41.9 Anxiety disorder, unspecified; I08.0 Rheumatic disorders of both mitral and aortic valves; I10 Essential (primary) hypertension; I44.7 Left bundle-branch block, unspecified; E86.0 Dehydration; M19.90 Unspecified osteoarthritis, unspecified site; R00.1 Bradycardia, unspecified; R11.0 Nausea; R14.0 Abdominal distension (gaseous); I44.0 Atrioventricular block, first degree; R63.0 Anorexia; Z68.29 Body mass index [BMI] 29.0-29.9, adult; I27.20 Pulmonary hypertension, unspecified; J00 Acute nasopharyngitis [common cold]; Z96.659 Presence of unspecified artificial knee joint; Z79.899 Other long term (current) drug therapy; W19.XXXA Unspecified fall, initial encounter; Y92.9 Unspecified place or not applicable; Z82.49 Family history of ischemic heart disease and other diseases of the circulatory system